=== PATIENT | male | born 1975 | race Caucasian/White ===

== ENCOUNTER 2021-02-04 16:18 | Emergency (ER) | payer OTHER, SELFPAY ==
[2021-02-04 16:24] VITALS: BP 134/87; PULSE 69; RESP 14; TEMP 37.1; O2SAT 99
--- NOTE | 2021-02-04 16:43 | ED.EXTPRO ---
HPI - Extremity Problem General Chief complaint: Extremity Problem,Nontraumatic Stated complaint: left leg pain Time Seen by Provider: 02/04/21 16:35 Source: patient Mode of arrival: ambulatory Limitations: no limitations History of Present Illness HPI Narrative: Giovanni Posey is a 45 yo male with no PMH who comes to [facility] after torsional injury at work yesterday. 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 EYES: Denies visual changes, redness, discharge. ENT: Denies rhinorrhea, congestion, sore throat, otalgia. CARDIOVASCULAR: Denies chest pain, palpitations, edema. RESPIRATORY: Denies dyspnea, wheezing, cough GASTROINTESTINAL: Denies abdominal pain, nausea, vomiting, diarrhea. GENITOURINARY: Denies dysuria, hematuria, abnormal discharge SKIN: Denies rash or itching. NEUROLOGIC: Denies numbness, or focal weakness. PSYCHIATRIC: Denies anxiety or depression. Left upper thigh pain with inability to put pressure when he walks on his leg, worse with stairs PMFSH Past Medical History Medical History No acute medical problems Family History Family History Other No acute medical problems Social History Social History (Updated 02/04/21 @ 16:47 by Rosalia Suero CNP) Smoking status: Current some day smoker Alcohol intake: current Gender identity (if verbalized by the patient): Male Comments At time of signature, I agree with nursing past medical, surgical, social and family history. There is no relevant family history pertinent to the presenting complaint. Exam Narrative: Exam Narrative: GENERAL: This is a well-nourished, well-developed patient, in moderate distress. HEAD: normocephalic, atraumatic. EYES: Sclera clear/white. Vision is grossly intact. EARS: External ears normal. Hearing grossly intact. NOSE: External nose normal without nasal discharge, nares without redness, no rhinorrhea. THROAT: Mucous membranes moist, NECK: Neck supple, non-tender CARDIOVASCULAR: Regular rate and rhythm without murmurs, gallops, or rubs. RESPIRATORY: Clear to auscultation. Breath sounds equal bilaterally. No wheezes, rales, or rhonchi. GASTROINTESTINAL: Abdomen soft, SKIN: warm, intact with no suspicious lesions or rash, good texture and turgor. NEURO: awake, alert, and oriented to person, place and time. There were no obvious focal neurologic abnormalities. Steady gait EXTREMITIES: Normal range of motion, . Unable to fully extend or flex leg without weight and when he tries to step with left leg there is shooting pain and feels like it is going to give out; BACK: Nontender without deformity Course Course Emergency Course: Patient comes with left thigh pain after injury at work yesterday Cannot put pressure on left leg cannot fully extend or bend at knee Placed immobilizer-started on baclofen Naprosyn Vital Signs Vital signs: Vital Signs Temperature 98.7 F 02/04/21 16:24 Pulse Rate 69 02/04/21 16:24 Respiratory Rate 14 02/04/21 16:24 Blood Pressure 134/87 02/04/21 16:24 Pulse Oximetry 99 02/04/21 16:24 Temperature 98.7 F 02/04/21 16:24 Pulse Rate 69 02/04/21 16:24 Respiratory Rate 14 02/04/21 16:24 Blood Pressure 134/87 02/04/21 16:24 Pulse Oximetry 99 02/04/21 16:24 MDM - Extremity
== END 2021-02-04 16:56 | disposition home or self-care (01) ==
PROVIDERS: Emergency Provider Nurse Practitioner; PCP Family Medicine
DX: M79.652 Pain in left thigh (principal); F17.210 Nicotine dependence, cigarettes, uncomplicated
CPT/HCPCS: 99213; G0463; L1830

== ENCOUNTER 2022-06-25 13:54 | Emergency (ER) | payer OTHER, SELFPAY ==
--- NOTE | ~2022-06-25 | XR_ITS ---
EXAMINATION: XR ribs RT 2V Exam Date/Time: 06/25/2022 14:20 [employer] HISTORY: FALL AGAINST TABLE, ANT RIB PAIN Comparison: None available. RESULT: Lines, tubes, and devices: None. Lungs and pleura: Clear. Cardiothymic silhouette: Partially visualized and unremarkable. Other: No acute osseous or upper abdominal finding. IMPRESSION: No acute osseous finding in the right ribs. Reviewed, dictated and finalized at location K. [employer]
[2022-06-25 14:07] VITALS: BP 124/81; PULSE 73; RESP 18; TEMP 36.5; O2SAT 97
--- NOTE | 2022-06-25 14:57 | ED.CHESTPAIN ---
HPI - Chest Pain General Chief Complaint: Upper Respiratory Infection Stated Complaint: right side rib injury Source: patient Mode of arrival: ambulatory Limitations: no limitations History of Present Illness HPI narrative: 46-year-old male presents to [facility] with complaints of pain to his right lateral chest wall after running into a table 3 days ago. Patient reports he was playing with his dog when he ran into a table hitting his right lateral chest wall against a wooden table. Patient has been taking [id number] Tylenol with minimal relief. Patient reports that the pain becomes worse with deep breathing, coughing or movement. MD complaint: chest pain Onset (ago): day(s) (3) Timing of current episode: constant Pain location: right chest and lateral Quality: other (sharp ) Relieving factors: movement Exacerbating factors: exertion, inspiration, palpation and movement Context: trauma/injury Treatment prior to arrival: other (Tylenol ) Related Data Home Medications Medication Instructions Recorded Confirmed trazodone 150 mg tablet 150 mg PO HS 02/04/21 06/25/22 Allergies Allergy/AdvReac Type Severity Reaction Status Date / Time No Known Drug Allergies Allergy Unknown Unknown Verified 06/25/22 14:49 Review of Systems Constitutional: Constitutional: Denies chills, Denies fatigue, Denies fever(s) and Denies weakness ENT: Denies vertigo and Denies dizziness Respiratory: Respiratory: Denies cough, Denies dyspnea and Denies wheezing Gastrointestinal: Gastrointestinal: Denies diarrhea, Denies nausea and Denies vomiting Musculoskeletal: Comments: right lateral chest wall pain Integumentary/Breasts: Skin/Breast: Denies rash Neurologic: Denies vertigo and Denies dizziness Allergic/Immunologic: Allergic/Immunologic: Denies lip swelling, Denies throat swelling, Denies tongue swelling and Denies wheezing [facility] Past Medical History Medical History No acute medical problems Family History Family History Other No acute medical problems Social History Social History Smoking status: Current some day smoker Alcohol intake: current Gender identity (if verbalized by the patient): Male Comments At time of signature, I agree with nursing past medical, surgical, social and family history. There is no relevant family history pertinent to the presenting complaint. Exam Const: General: healthy appearing and no acute distress Nutritional Appearance: well nourished Orientation/consciousness: patient oriented x3 Limitations: no limitations Neck: Neck: normal visual inspection Resp: Effort & Inspection: normal respiratory effort and not labored Auscultation: clear to auscultation bilaterally, no crackles, no rales, no rhonchi and no wheezes Cardio: Rate: regular rate Rhythm: regular rhythm Heart sounds: no murmurs Skin: General skin exam: normal color Rashes: no rashes Neuro: General: patient oriented x3 Speech: normal speech Gait exam (Neuro): Normal gait present Extrem: Other: Mild bruising and a 3 cm healing abrasion noted to right lateral chest wall pain. Pain is noted with palpation to right lateral chest wall. There are no open wounds or signs of infection. Psych: Affect: normal affect Attitude: cooperative Course Course Level of Care: [facility] Visit Vital Signs Vital signs: Vital Signs Temperature 36.5 C 06/25/22 14:07 Pulse Rate 73 06/25/22 14:07 Respiratory Rate 18 06/25/22 14:07 Blood Pressure 124/81 06/25/22 14:07 Pulse Oximetry 97 06/25/22 14:07 Oxygen Delivery Room Air 06/25/22 14:07 Temperature 36.5 C 06/25/22 14:07 Pulse Rate 73 06/25/22 14:07 Respiratory Rate 18 06/25/22 14:07 Blood Pressure 124/81 06/25/22 14:07 Pulse Oximetry 97 06/25/22 14:07 Oxygen Del
== END 2022-06-25 15:22 | disposition home or self-care (01) ==
PROVIDERS: Emergency Provider Nurse Practitioner Family; PCP Family Medicine
DX: S20.211A Contusion of right front wall of thorax, initial encounter (principal); W22.03XA Walked into furniture, initial encounter; Y93.02 Activity, running; F17.290 Nicotine dependence, other tobacco product, uncomplicated
CPT/HCPCS: 71100; 99213; G0463

== ENCOUNTER 2024-07-24 12:42 | Emergency (ER) | payer OTHER, SELFPAY ==
--- NOTE | ~2024-07-24 | XR_ITS ---
EXAMINATION: XR chest 2V DATE: 07/24/2024 15:22 INDICATION: Acute cough TECHNIQUE: PA and lateral views of the chest were obtained. COMPARISON: Chest radiograph dated 06/25/2022 FINDINGS: The lungs are clear with no focal airspace opacities, pulmonary edema, pleural effusion or pneumothor ax. The cardiomediastinal silhouette is normal. There are bridging osteophytes at multiple levels con sistent with diffuse idiopathic skeletal hyperostosis (DISH). IMPRESSION: 1. No acute cardiopulmonary disease. Reviewed, dictated and finalized at location B. 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
[2024-07-24 13:16] VITALS: BP 124/67; PULSE 95; RESP 20; TEMP 36.5; O2SAT 100
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
== END 2024-07-24 15:47 | disposition home or self-care (01) ==
PROVIDERS: Emergency Provider Registered Nurse; PCP Family Medicine
DX: J06.9 Acute upper respiratory infection, unspecified (principal)
CPT/HCPCS: 71046; 99213; G0463